=== PATIENT | male | born 1945 | race Caucasian/White ===

== ENCOUNTER → 2019-11-30 10:56 | Outpatient (BNVA) | payer MEDICARE, SELFPAY | PROVIDERS: Family Provider Family Medicine; Visit Provider Family Medicine | DX: I10 Essential (primary) hypertension (principal); E11.9 Type 2 diabetes mellitus without complications; L82.1 Other seborrheic keratosis; I78.1 Nevus, non-neoplastic | CPT/HCPCS: 80048; 83036 ==

== ENCOUNTER → 2020-04-07 09:32 | Outpatient (BNVA) | payer MEDICARE, SELFPAY | PROVIDERS: Family Provider Family Medicine; Visit Provider Family Medicine | DX: I10 Essential (primary) hypertension (principal); K21.9 Gastro-esophageal reflux disease without esophagitis; E11.9 Type 2 diabetes mellitus without complications; N40.0 Benign prostatic hyperplasia without lower urinary tract symptoms; R19.8 Other specified symptoms and signs involving the digestive system and abdomen | CPT/HCPCS: 80053; 80061; 81000; 83036; 83690 ==

== ENCOUNTER 2020-04-15 07:15 | Day surgery (SDC) | payer MEDICARE, SELFPAY ==
[2020-04-14 13:45] VITALS: BMI 26.9
[2020-04-15 07:40] VITALS: BP 147/81; PULSE 66; RESP 18; TEMP 36.2; O2SAT 94
--- NOTE | 2020-04-15 07:55 | ANES.PREANE2 ---
Pre-Anesthetic Assessment Pre-Anesthetic Assessment: Height/Weight: Height 1.77 m Weight 83.915 kg Temp Pulse Resp BP Pulse Ox 97.2 F L 66 18 147/81 94 04/15/20 07:40 04/15/20 07:40 04/15/20 07:40 04/15/20 07:40 04/15/20 07:40 Preop Diagnosis: pain Proposed Procedure: Operation Date: 04/15/20 09:00 Proposed Procedures p EGD 99578 R10.9(Not Applicable) - Fox Alcazar MD Last intake: Intake Last Liquid Date 04/14/20 Last Liquid Time 19:00 Last Solid Date 04/14/20 Last Solid Time 19:00 Social: Social History: No alcohol and No tobacco Exam: Pre-Anes Outpt Exam: alert, oriented x 3, clear to auscultation bilaterally and regular rate & rhythm Airway: Submandibular: WNL Cervical ROM: WNL MP: 1 Dentition: Other (very poor) History/ROS: No significant history except as noted Pulmonary: Pulmonary: Cough and Sleep apnea CV/HEM: CV/HEM: HTN : Comments: h/o kidney CA Hepatic: Comments: fatty liver Metabolic: Metabolic: None reported Musc/skel: Musc/skel: OA/DJD Neuropsych: Neuropsych: None reported Anesthetic Plan: ASA status: 2 Anesthesia: Anesthesia Evaluation and MAC Risk of > 500 ml blood loss (7ml/kg in children): No PFSH Anesthesia PFSH: Medical History BPH (benign prostatic hyperplasia) Diabetes Essential hypertension (Unknown) Fatty liver GERD (gastroesophageal reflux disease) Hepatic cyst Surgical History H/O arthroscopic knee surgery H/O vasectomy History of kidney surgery History of prostate surgery S/P tonsillectomy Social History Smoking and tobacco status: never smoked Alcohol intake: never History of recent travel: No Data Anesthesia Cardiac Studies: No Data to Display
[2020-04-15] MEDS: sodium chloride 0.9% 1,000 ML 30 ML IV (07:57)
--- NOTE | 2020-04-15 09:15 | P.HP_ITS ---
Same Day Surgery H&P Indication for Procedure/HPI DATE OF PROCEDURE: April 15, 2020 CHIEF COMPLAINT/INDICATIONFOR SURGICAL PROCEDURE: Epigastric pain PREOP DIAGNOSIS: pain PLANNED PROCEDRUE: Operation Date: 04/15/20 09:00 Proposed Procedures p EGD 45165 R10.9(Not Applicable) - Fox Alcazar MD Medications/Allergies* Home Medications Medication Instructions Recorded Confirmed Type finasteride 5 mg tablet 5 mg PO QDAY 11/28/19 04/15/20 History Allergies/Adverse Reactions Allergy/AdvReac Type Severity Reaction Status Date / Time No Known Allergies Allergy Verified 04/12/20 13:37 Current Medications: Generic Name Dose Route Start Last Admin Trade Name Freq PRN Reason Stop Dose Admin Sodium Chloride 1,000 mls @ 30 mls/hr 04/15/20 07:30 04/15/20 07:57 Sodium Chloride 0.9% IV 30 mls/hr .Q24H TANNER Administration Pertinent History/Comorbid Conditions* Medical History (Updated 04/12/20 @ 14:10 by Fox Alcazar MD) BPH (benign prostatic hyperplasia) Diabetes Essential hypertension (Unknown) Fatty liver GERD (gastroesophageal reflux disease) Hepatic cyst Surgical History (Updated 11/30/19 @ 11:58 by Vee Rosenberg MD) H/O arthroscopic knee surgery H/O vasectomy History of kidney surgery History of prostate surgery S/P tonsillectomy Social History Smoking and tobacco status: never smoked Alcohol intake: never History of recent travel: No Pertinent Exam Findings alert, oriented x 3, clear to auscultation bilaterally, regular rate & rhythm, operative site marked and procedure specific exam findings Recommendations Surgery/Procedure today Coding Level of Care Code Acute Financial Services Representative for Fercho Guy
--- NOTE | 2020-04-15 09:20 | US_ITS ---
WS: [id number] ABDOMINAL ULTRASOUND LIMITED REASON FOR VISIT: Postprandial epigastric pain and pale-colored stools. TECHNIQUE: Grayscale and Doppler ultrasound examination of the abdomen. FINDINGS: Pancreas: Poorly evaluated due to overriding gas. Abdominal aorta and IVC: Normal Liver: Liver measures 16.4 cm in length echogenic pattern is consistent with fatty infiltration. Hepatopedal portal circulation. A benign appearing cyst is seen in the left lobe of the liver. Gallbladder: Gallbladder wall thickness measures 0.2 mm. No stones identified Right kidney: Right kidney measures 11.7 cm x 5.8 cm x 6.4 cm. No hydronephrosis no stones. US/US gall bladder [id number] IMPRESSION: Fatty infiltration of the liver. Gallbladder was negative. Benign cyst of the left lobe of the liver
[2020-04-15 09:24] VITALS: BP 115/71; PULSE 54; RESP 16; TEMP 36.5; O2SAT 91
[2020-04-15 09:42] VITALS: BP 121/78; PULSE 52; RESP 18; O2SAT 90
[2020-04-18 09:08] LABS: H. Pylori / CLO Test Negative
== END 2020-04-15 10:01 | disposition home or self-care (01) ==
PROVIDERS: Family Provider Family Medicine; Visit Provider Internal Medicine
PROC: 0DJ08ZZ Inspection of Upper Intestinal Tract, Via Natural or Artificial Opening Endoscopic (ICD-10-PCS; CPT 43235; principal; 2020-04-15 09:00)
DX: R10.13 Epigastric pain (principal); K29.70 Gastritis, unspecified, without bleeding; N40.0 Benign prostatic hyperplasia without lower urinary tract symptoms; E11.9 Type 2 diabetes mellitus without complications; I10 Essential (primary) hypertension; K21.9 Gastro-esophageal reflux disease without esophagitis; G47.30 Sleep apnea, unspecified; M19.90 Unspecified osteoarthritis, unspecified site
CPT/HCPCS: 12345; 43239; 76705; 87077; J7030

== ENCOUNTER 2020-05-27 13:53 | Outpatient (CLI) | payer MEDICARE, SELFPAY ==
--- NOTE | 2020-05-27 14:15 | USCV_ITS ---
Bhanu Mcclendon Age: 74 Gender: M : 1945 Exam Date: 05/27/2020 14:20 Ordering Phys: Vee Rosenberg MD Technologist: JENNIFER ROSALES Exam Location: [facility] [place] Indication: SWELLING OF LEFT LOWER EXTREMITY PROCEDURES: Venous duplex imaging was performed in only the left lower extremity. The following venous structures were evaluated: common femoral vein, profunda vein, proximal portion of the greater saphenous vein, superficial femoral vein, and the popliteal vein. In addition, the posterior tibial and peroneal trunk were evaluated. Serial compression, augmentation maneuvers, and spectral Doppler flow evaluation were performed. FINDINGS: Normal 2-D Doppler and augmentation and compressibility throughout the lower extremity venous structures. Additional imaging through the proximal calf veins also reveals no thrombus. Limited evaluation of the greater saphenous vein is patent with no thrombus.. CONCLUSIONS No evidence of left lower extremity DVT. Martell Bryan MD (Electronically Signed) Final Date: 27 May 2020 16:44 S
== END 2020-05-27 13:54 | disposition home or self-care (01) ==
LOC: US 13:55
PROVIDERS: PCP Family Medicine; Visit Provider Family Medicine
DX: M79.89 Other specified soft tissue disorders (principal)
CPT/HCPCS: 93971

== ENCOUNTER 2020-06-07 06:00 | Outpatient (RCR) | payer MEDICARE, SELFPAY | END 2020-06-10 23:59 | disposition home or self-care (01) | LOC: MOT 06:00 | PROVIDERS: PCP Family Medicine; Referring Provider Family Medicine; Visit Provider Family Medicine | DX: M79.89 Other specified soft tissue disorders (principal) | CPT/HCPCS: 97140; 97165 ==

== ENCOUNTER 2020-06-11 06:00 | Outpatient (RCR) | payer MEDICARE, SELFPAY | END 2020-07-11 23:59 | disposition home or self-care (01) | LOC: MOT 06:00 | PROVIDERS: PCP Family Medicine; Referring Provider Family Medicine; Visit Provider Family Medicine | DX: M79.89 Other specified soft tissue disorders (principal) | CPT/HCPCS: 97140 ==

== ENCOUNTER 2020-07-12 06:00 | Outpatient (RCR) | payer MEDICARE, SELFPAY | END 2020-08-10 23:59 | disposition home or self-care (01) | LOC: MOT 06:00 | PROVIDERS: PCP Family Medicine; Referring Provider Family Medicine; Visit Provider Family Medicine | DX: M79.89 Other specified soft tissue disorders (principal) | CPT/HCPCS: 97140; 97535 ==

== ENCOUNTER 2020-09-11 06:00 | Outpatient (RCR) | payer MEDICARE, SELFPAY | END 2020-10-10 23:00 | disposition home or self-care (01) | LOC: MOT 06:00 | PROVIDERS: PCP Family Medicine; Referring Provider Family Medicine; Visit Provider Family Medicine | DX: M79.89 Other specified soft tissue disorders (principal) | CPT/HCPCS: 97140 ==

== ENCOUNTER → 2020-11-08 11:23 | Outpatient (BNVA) | payer MEDICARE, SELFPAY | PROVIDERS: PCP Family Medicine; Visit Provider Family Medicine | DX: I10 Essential (primary) hypertension (principal); E87.6 Hypokalemia; R10.9 Unspecified abdominal pain; M79.89 Other specified soft tissue disorders; E11.42 Type 2 diabetes mellitus with diabetic polyneuropathy | CPT/HCPCS: 80053; 83036; 83690 ==

== ENCOUNTER → 2021-03-24 10:22 | Outpatient (BNVA) | payer MEDICARE, SELFPAY | PROVIDERS: PCP Family Medicine; Visit Provider Family Medicine | DX: Z20.822 Contact with and (suspected) exposure to COVID-19 (principal) | CPT/HCPCS: 87635 ==

== ENCOUNTER 2021-03-30 12:53 | Outpatient (CLI) | payer MEDICARE, SELFPAY ==
--- NOTE | 2021-03-30 13:23 | PFTS_ITS ---
Date of Study:03/30/21 Date of Dictation: MECHANICS: Forced vital capacity (FVC) is normal. Forced expiratory volume in one second (FEV1) is normal. FEV1/FVC is normal. FLOW VOLUME LOOP: The inspiratory limb of flow volume loop is consistent with variable extrathoracic obstruction. LUNG VOLUMES: Not measured DIFFUSING CAPACITY FOR CARBON MONOXIDE: Mildly reduced. INTERPRETATION: The prebronchodilator spirometry is normal. Flow volume loop could be suggestive of variable extrathoracic obstruction. Gas exchange (DLCO) is mildly reduced. MTDD
== END 2021-03-30 12:54 | disposition home or self-care (01) ==
LOC: RT 12:53
PROVIDERS: PCP Family Medicine; Visit Provider Family Medicine
DX: R06.02 Shortness of breath (principal)
CPT/HCPCS: 94010; 94729

== ENCOUNTER → 2021-05-08 14:11 | Outpatient (BNVA) | payer MEDICARE, SELFPAY | PROVIDERS: PCP Family Medicine; Visit Provider Family Medicine | DX: E11.9 Type 2 diabetes mellitus without complications (principal); R06.02 Shortness of breath; R05 Cough; I10 Essential (primary) hypertension; J18.9 Pneumonia, unspecified organism; J30.9 Allergic rhinitis, unspecified | CPT/HCPCS: 71046; 80053; 83036; 85025 ==

== ENCOUNTER 2021-07-03 14:07 | Outpatient (CLI) | payer MEDICARE, SELFPAY ==
--- NOTE | 2021-07-03 14:17 | USCV_ITS ---
Bhanu Mcclendon Age: 76 Gender: M : 1945 Exam Date: 07/03/2021 14:36 Ordering Phys: Rosamaria Sinclair MD Technologist: Lulu Ren Exam Location: [facility] [place] Indication: SHORTNESS OF BREATH BP: 111 / 80 HR: 59 Rhythm: Sinus Technical Quality: Adequate MEASUREMENTS (Male / Female) Normal Values 2D ECHO LV Diastolic Diameter PLAX 4.6 cm 4.2 - 5.9 / 3.9 - 5.3 cm LV Systolic Diameter PLAX 2.9 cm IVS Diastolic Thickness 1.2 cm 0.6 - 1.0 / 0.6 - 0.9 cm IVS Systolic Thickness 1.6 cm LVPW Diastolic Thickness 1.3 cm 0.6 - 1.0 / 0.6 - 0.9 cm LVPW Systolic Thickness 1.6 cm RV Chamber Size 3.4 cm LVOT Diameter 2.0 cm LV Ejection Fraction 2D Teich 65.1 % LV Ejection Fraction MOD 2C 65.0 % LV Ejection Fraction 2C AL 67.3 % LA Diameter 2.8 cm LA Width 2.9 cm LA Height 4.1 cm RA Width 3.1 cm RA Height 3.9 cm Aorta at Sinotubular Diameter 2.5 cm M-MODE Aortic Annulus Diameter 3.3 cm LA Ao Ratio MM 0.9 MV E Point Septal Separation 0.4 cm DOPPLER AV Peak Velocity 131.0 cm/s LVOT Peak Velocity 92.0 cm/s AV Area Cont Eq vti 2.3 cm squared AV Area Cont Eq pk 2.2 cm squared MV Area PHT 5.1 cm squared Mitral E to A Ratio 1.6 MV E' Velocity 37.5 cm/s Mitral E to MV E' Ratio 7.6 Mitral E to LV E' Lateral Ratio 7.2 Mitral E to LV E' Septal Ratio 8.0 TR Peak Velocity 206.0 cm/s TR Peak Gradient 17.0 mmHg TV Peak E Velocity 50.3 cm/s Right Atrial Pressure 3.0 mmHg Pulmonary Artery Systolic Pressu 20.0 mmHg PV Peak Velocity 81.0 cm/s RV Acceleration Time 0.1 s RV Ejection Time 0.3 s RV AcT/ET 0.4 FINDINGS Left Ventricle Normal left ventricular size. LV systolic function is normal with EF of 55-60%. No regional wall motion abnormalities. Grade 1 diastolic dysfunction Right Ventricle The right ventricle is normal in size and function. Right Atrium The right atrium is normal in size. Left Atrium The left atrium is normal in size. Mitral Valve Structurally normal mitral valve without significant stenosis or prolapse. There is no mitral regurgitation. Aortic Valve Structurally normal aortic valve without significant sclerosis or stenosis. There is no aortic regurgitation. Tricuspid Valve Structurally normal tricuspid valve without significant stenosis or regurgitation. Insufficient TR jet to calculate RVSP Pulmonic Valve Structurally normal pulmonic valve without significant stenosis. There is no pulmonic regurgitation. Pericardium Normal pericardium without effusion. Aorta Normal ascending aorta dimension. CONCLUSIONS LV systolic function is normal with EF of 55-60% Grade 1 diastolic dysfunction No significant valvular heart disease No comparison studies are available Anibal Johnson MD (Electronically Signed) Final Date: 13 July 2021 13:23 S
== END 2021-07-03 14:08 | disposition home or self-care (01) ==
PROVIDERS: PCP Family Medicine; Visit Provider Internal Medicine Critical Care Medicine
DX: R06.02 Shortness of breath (principal); I51.81 Takotsubo syndrome
CPT/HCPCS: 93306

== ENCOUNTER → 2022-02-06 14:28 | Outpatient (BNVA) | payer MEDICARE, SELFPAY | PROVIDERS: PCP Family Medicine; Visit Provider Family Medicine | DX: I10 Essential (primary) hypertension (principal); N40.1 Benign prostatic hyperplasia with lower urinary tract symptoms; R39.11 Hesitancy of micturition; J30.9 Allergic rhinitis, unspecified; E87.6 Hypokalemia; E11.9 Type 2 diabetes mellitus without complications | CPT/HCPCS: 80048; 81000; 83036; 83735 ==

== ENCOUNTER → 2022-05-16 11:02 | Outpatient (BNVA) | payer MEDICARE, SELFPAY | PROVIDERS: PCP Family Medicine; Visit Provider Emergency Medicine | DX: N30.01 Acute cystitis with hematuria (principal); Z87.442 Personal history of urinary calculi | CPT/HCPCS: 81000 ==

== ENCOUNTER → 2022-05-24 10:22 | Outpatient (BNVA) | payer MEDICARE, SELFPAY | PROVIDERS: PCP Family Medicine; Visit Provider Family Medicine | DX: Z87.442 Personal history of urinary calculi (principal); K76.0 Fatty (change of) liver, not elsewhere classified; R31.9 Hematuria, unspecified; N40.1 Benign prostatic hyperplasia with lower urinary tract symptoms; R39.11 Hesitancy of micturition | CPT/HCPCS: 81000; 87086 ==

== ENCOUNTER → 2022-06-05 15:41 | Outpatient (BNVA) | payer MEDICARE, SELFPAY | PROVIDERS: PCP Family Medicine; Visit Provider Family Medicine | DX: R31.9 Hematuria, unspecified (principal) | CPT/HCPCS: 81000; 87086 ==

== ENCOUNTER 2022-06-27 10:25 | Outpatient (CLI) | payer MEDICARE, SELFPAY ==
--- NOTE | 2022-06-27 11:00 | US_ITS ---
WS: [id number] Abdomen ultrasound, 06/27/2022 Clinical Data: K76.0 - Fatty (change of) liver, not elsewhere classified Comparison: CT abdomen, 10/09/2019. Findings: The pancreas shows no cyst, pseudocyst or evidence of pancreatitis. The liver shows no cysts, masses or dilated intrahepatic ducts. The liver is dense. The gallbladder has no stones or sludge. The wall measures 0.2 cm with no pericholecystic fluid. The common bile duct is 0.5 cm and no intraductal abnormalities are noted. The right kidney is 12.1 cm. There is mild right hydronephrosis. The left kidney is 9.7 cm. The left kidney shows a mild dilated renal pelvis with possible cyst. The abdominal aorta is not dilated and t he inferior vena cava has normal flow. No vascular abnormalities are seen. The spleen measures 10.5 cm and there are no intrasplenic masses or capsular abnormalities. US/US abdomen complete* [id number] Impression: 1. Dense echogenic liver. 2. Mild right hydronephrosis. 3. Minimal dilated left renal pelvis with possible cyst
== END 2022-06-27 10:26 | disposition home or self-care (01) ==
LOC: RAD 10:27
PROVIDERS: PCP Family Medicine; Visit Provider Family Medicine
DX: K76.0 Fatty (change of) liver, not elsewhere classified (principal); N13.30 Unspecified hydronephrosis
CPT/HCPCS: 76700

== ENCOUNTER → 2022-10-16 13:46 | Outpatient (BNVA) | payer MEDICARE, SELFPAY | PROVIDERS: PCP Family Medicine; Visit Provider Family Medicine | DX: Z13.220 Encounter for screening for lipoid disorders (principal); E11.9 Type 2 diabetes mellitus without complications; Z13.6 Encounter for screening for cardiovascular disorders; K76.0 Fatty (change of) liver, not elsewhere classified | CPT/HCPCS: 80061; 83036; 86803 ==

== ENCOUNTER → 2023-01-14 11:34 | Outpatient (BNVA) | payer MEDICARE, SELFPAY | PROVIDERS: PCP Family Medicine; Visit Provider Family Medicine | DX: R30.0 Dysuria (principal) | CPT/HCPCS: 81000 ==

== ENCOUNTER → 2023-02-05 13:18 | Outpatient (BNVA) | payer MEDICARE, SELFPAY | PROVIDERS: PCP Family Medicine; Visit Provider Family Medicine | DX: R30.9 Painful micturition, unspecified (principal); R31.9 Hematuria, unspecified | CPT/HCPCS: 81000; 87086 ==

== ENCOUNTER → 2023-06-11 14:55 | Outpatient (BNVA) | payer MEDICARE, SELFPAY | PROVIDERS: PCP Family Medicine; Visit Provider Family Medicine | DX: I10 Essential (primary) hypertension (principal); E11.9 Type 2 diabetes mellitus without complications | CPT/HCPCS: 80053; 83036; 83735 ==

== ENCOUNTER → 2023-09-10 13:33 | Outpatient (BNVA) | payer MEDICARE, SELFPAY | PROVIDERS: PCP Family Medicine; Visit Provider Family Medicine | DX: M17.12 Unilateral primary osteoarthritis, left knee (principal) | CPT/HCPCS: 73562 ==

== ENCOUNTER → 2023-09-18 13:15 | Outpatient (BNVA) | payer MEDICARE, SELFPAY | PROVIDERS: PCP Family Medicine; Referring Provider Family Medicine; Visit Provider Nurse Practitioner | DX: M17.12 Unilateral primary osteoarthritis, left knee | CPT/HCPCS: 20610; 73560; 73565; 99204; J1100; J2795; J3301 ==

== ENCOUNTER → 2023-12-25 12:08 | Outpatient (BNVA) | payer MEDICARE, SELFPAY | PROVIDERS: PCP Family Medicine; Visit Provider Nurse Practitioner | DX: M17.12 Unilateral primary osteoarthritis, left knee (principal) | CPT/HCPCS: 99214 ==

== ENCOUNTER → 2023-12-30 08:45 | Outpatient (BNVA) | payer MEDICARE, SELFPAY | PROVIDERS: PCP Family Medicine; Referring Provider Nurse Practitioner; Visit Provider Nurse Practitioner | DX: E11.9 Type 2 diabetes mellitus without complications (principal); M17.12 Unilateral primary osteoarthritis, left knee | CPT/HCPCS: 80053; 83036; 85025 ==

== ENCOUNTER 2024-01-20 09:41 | Outpatient (CLI) | payer MEDICARE, SELFPAY ==
--- NOTE | 2024-01-20 10:30 | CT_ITS ---
WS: [id number] CT LEFT KNEE, NONCONTRAST TECHNIQUE: Noncontrast CT of the LEFT knee to include the LEFT hip and ankle. [facility] CLINICAL INFORMATION: surgery COMPARISON: None. DLP: [id number] scans at [facility] use at least one of these dose optimization techniques: automated e xposure control; mA and/or kV adjustment per patient size (includes targeted exams where dose is matc hed to clinical indication); or iterative reconstruction. FINDINGS: Advanced tricompartmental arthritis LEFT knee. Hypertrophic changes along the joint line. Hypertrophi c patella. Small joint effusion. Normal popliteal fossa. Degenerative arthritis sacroiliac joints. Mo derate degenerative arthritis both hips. IMPRESSION: Images obtained for preoperative purposes.
== END 2024-01-20 09:42 | disposition home or self-care (01) ==
LOC: RAD 09:41
PROVIDERS: PCP Family Medicine; Visit Provider Nurse Practitioner
DX: M17.12 Unilateral primary osteoarthritis, left knee (principal)
CPT/HCPCS: 73700

== ENCOUNTER → 2024-01-21 13:46 | Outpatient (BNVA) | payer MEDICARE, SELFPAY | PROVIDERS: PCP Family Medicine; Visit Provider Family Medicine | DX: Z01.818 Encounter for other preprocedural examination (principal) | CPT/HCPCS: 81003 ==

== ENCOUNTER → 2024-01-22 12:07 | Outpatient (BNVA) | payer MEDICARE, SELFPAY | PROVIDERS: PCP Family Medicine; Visit Provider Family Medicine | DX: Z01.818 Encounter for other preprocedural examination (principal); R82.71 Bacteriuria | CPT/HCPCS: 87086 ==

== ENCOUNTER 2024-01-30 11:57 | Observation (INO) | payer MEDICARE, SELFPAY ==
[2024-01-30] VITALS (17 sets, daily range): BP systolic 117–146; BP diastolic 64–86; PULSE 49–78; RESP 12–18; TEMP 36.2–37.5; O2SAT 93–97; BMI 29.3
--- NOTE | 2024-01-30 06:57 | P.ANESASSM_ITS ---
Pre-Anesthetic Assessment Height/Weight: Height 1.75 m Temp Pulse Resp BP Pulse Ox O2 Del Method 97.7 F 50 L 16 145/86 95 Room Air 01/30/24 06:13 01/30/24 06:13 01/30/24 06:13 01/30/24 06:13 01/30/24 06:13 01/30/24 06:13 Operation Date: 01/30/24 07:55 Proposed Procedures p Jake Robot Total Knee Arthroplasty(Left) - Mirella Alex MD Familial anesthetic complications: None Was Beta Chio taken within 24 hours: N/A Was Clonidine taken within 24 hours: N/A Last intake: Intake Last Liquid Date 01/29/24 Last Liquid Time 19:00 Last Solid Date 01/29/24 Last Solid Time 19:00 Social No alcohol and No tobacco Exam alert, oriented x 3, clear to auscultation bilaterally and regular rate & rhythm Airway Mallampati: Class II CV/HEM Hypertension Hepatic fatty liver Anesthetic Plan ASA status: 2 Anesthesia: Regional (specify below) Risk of > 500 ml blood loss (7ml/kg in children): No Medications/Allergies Home Medications Medication Instructions Recorded Confirmed Last Taken Type docusate sodium 100 mg capsule 100 mg PO BID 30 days #60 caps 07/16/23 01/30/24 01/28/24 Rx finasteride 5 mg tablet 5 mg PO DAILY 90 days #90 tabs 12/11/23 01/30/24 01/28/24 Rx losartan 50 mg-hydrochlorothiazide 1 tab PO DAILY 90 days #90 tabs 12/11/23 01/30/24 01/28/24 Rx 12.5 mg tablet Allergies Allergy/AdvReac Type Severity Reaction Status Date / Time lisinopril AdvReac Mild diarrhea, Verified 01/29/24 10:48 abdominal pain [facility] Anesthesia Medical History Osteoarthritis of left knee History of kidney stones SOB (shortness of breath) Allergic rhinitis GERD (gastroesophageal reflux disease) Resolved, off PPI, we will restart if needed. Essential hypertension (Unknown) Fatty liver Hepatic cyst BPH (benign prostatic hyperplasia) No longer following with retired urologist. We can refer back in the future if needed Diabetes Surgical History H/O laminectomy H/O circumcision H/O vasectomy H/O arthroscopic knee surgery History of kidney surgery History of prostate surgery S/P tonsillectomy Family History Mother Cancer Denies family history of Diabetes CAD (coronary artery disease) Anesthesia complication Bleeding disorder Social History Smoking and tobacco/nicotine status: former use of tobacco/nicotine Second hand smoke exposure: No Alcohol intake: never Substance/Drug Use: never Lives independently: Yes Household members: spouse Marital status: Current occupational status: retired Do you think of yourself as: Straight/Heterosexual Current gender identity: Male Data Anesthesia Cardiac Studies: Echocardiogram 07/03/21
[2024-01-30] MEDS: sodium chloride 0.9% 1,000 ML 30 ML IV (06:59)
[2024-01-30] MEDS: gabapentin 300 mg Capsule PO (07:02)
[2024-01-30] MEDS: acetaminophen 1,000 MG/100 ML PIGGYBACK 400 MG IV ×3 (07:02→19:47)
[2024-01-30] MEDS: CELEcoxib 200 mg Capsule 400 MG PO (07:03)
--- NOTE | 2024-01-30 07:52 | ANES.PROC ---
Anesthesia Procedures Procedure/Date: 01/30/24 Nerve Block ^: Nerve Block 1: Main Anesthesia: spinal anesthesia block Time Out Performed: Yes Consent: requested by attending/covering physician, from patient, from other, risks and benefits reviewed and patient agrees to proceed Nerve block location: adductor canal (L) Anesthesia monitors applied: pulse oximetry, EKG and BP cuff Nerve block position: supine Anesthetic Used: ropivicaine 0.5% (30 ml) and with decadron (4 mg) Ultrasound used to: recognize landmarks and visualize and ID femerol nerve Nerve Stimulator Used?: No Interscalene/Femoral BLK: 4 stimuplex 21 g needle used for position and inplane approach, visualize local anesthetic spread and no vascular puncture identified Injection: neg aspiration of heme Patient Tolerated Procedure: well Complications: none
--- NOTE | 2024-01-30 07:59 | P.HPUD_ITS ---
Surgery/Procedure H&P Update DATE OF PROCEDURE: January 30, 2024 DATE H&P PERFORMED: 01/21/24 H&P UPDATE INFORMATION: I have reviewed H&P completed within last 30 days, I have examined patient prior to procedure, No changes to prior documentation and H&P is in [facility] EMR on date indicated PLANNED PROCEDURE: Operation Date: 01/30/24 07:55 Proposed Procedures p Jake Robot Total Knee Arthroplasty(Left) - Mirella Alex MD Related Problem List Diagnoses (1) Osteoarthritis of left knee: Qualifiers: Osteoarthritis type: primary Qualified Code(s): M17.12 - Unilateral primary osteoarthritis, left knee
[2024-01-30] MEDS: ceFAZolin 2,000 MG in sodium chloride 0.9% (plus) 50 ML 100 MG IV ×3 (08:10→23:51)
[2024-01-30] MEDS: tranexamic acid 1,000 mg/10mL SDV 1000 MG XX (08:32)
[2024-01-30] MEDS: ceFAZolin 1,000 mg SDV 2000 MG IRRIGATION (09:05)
[2024-01-30] MEDS: vancomycin 1,000 MG SDV 1000 MG XX (09:06)
[2024-01-30] MEDS: BUPivacaine 0.5% INJ 30 mL 20 ML INJECTION (09:07)
[2024-01-30] MEDS: BUPivacaine liposome 13.3 mg/mL SDV 10 mL 266 MG INFILTRATI (09:07)
--- NOTE | 2024-01-30 11:34 | XR_ITS ---
WS: [id number] Left knee, AP and lateral views, 01/30/2024 Clinical Data: Status post left total knee arthroplasty Comparison: Left knee, bilateral knees, 09/18/2023 Findings: The left knee arthroplasty shows the components in good position. There is postoperative air in the j oint space. Impression: Negative left knee. Left knee arthroplasty
--- NOTE | 2024-01-30 11:35 | P.OP_ITS ---
Operative Report Date of procedure: January 30, 2024 Pre-op diagnosis: Significant degenerative osteoarthritis of the left knee with flexion contracture and varus deformity Post-op diagnosis: Significant degenerative osteoarthritis of the left knee with flexion contracture and varus deformity Post-op findings: Significant degenerative osteoarthritis of the left knee with flexion contr acture and varus deformity as noted Procedure done: Left total knee arthroplasty with Jake guidance Implants: The Shaggy total knee system with a size 5 triathlon beaded cruciate retaining femur left, a triathlon titanium tibial component size 6 beaded, a triathlon X3 tibial bearing CS insert size 6 X 9 mm and a beaded triathlon titanium asymmetric patella size 35 x 10 mm Specimens removed/disposition: Bone, disposed of Pathology: None Surgeon: Mirella Alex MD Recruiting Consultant: Steff Fuentes, nurse practitioner, who services were essential for positioning, retraction, closure, and completion of the surgical procedure Anesthesia: Spinal (With MAC, ASA 2) Estimated blood loss (mL): 600 Tourniquet time (min): 0 (Not utilized) IV fluids (mL): 200 Urine output (mL): 200 Complications: None Findings: Severe degenerative osteoarthritis Condition: stable Disposition: PACU Brief History: This 78-year-old gentleman presented today for left total knee arthroplasty. He had had ongoing pain for several years and had significant limitations in his activities of daily living. He failed conservative nonoperative management. The patient wished to proceed with total knee arthroplasty. Risks and complications were discussed with him in the clinic. He elected to proceed and family was in agreement. At that time, consents were signed and questions were answered. Procedure: The patient was brought to the operating theater, and after undergoing spinal anesthetic, with supplemental adductor canal block, ASA 2, the left lower extre mity was prepped with Dura-Prep and draped in usual fashion following placement of a tourniquet high on the leg. The leg was then draped free.? Tourniquet was not elevated during the case.? A surgical pause was performed, and at the time of the surgical pause, we confirmed the site and side of surgery. Additionally, we confirmed the appropriate and timely administration of preoperative antibiotics, Ancef 2 g.? The availability of equipment was confirmed, and the patient's identity was verbalized as well. Following the surgical pause, an incision was made centering over the patella continuing proximally and distally as necessary to allow access to the knee joint. Dissection continued through skin and soft tissues using a scalpel. Hemostasis was obtained using electrocautery. The skin incision was followed by a median parapatellar arthrotomy. The leg was extended and the patella was able to be displaced laterally.? Appropriate arrays and markers were placed in appropriate position for use of the Jake.? Preoperative planning had been accomplished and was discussed in detail with the [facility] membership sales representative.? Intraoperative mapping of the femur and tibia was accomplished after the arrays were placed.? Internal markers were also placed.? Once we had accomplished the Jake mapping, we began the appropriate resections for placement of the prosthesis.? The plan was for a cruciate retaining right total knee arthroplasty. Once appropriate mapping had been accomplished retraction was established using manual retraction by surgical technicians and also the [facility] leg positioner and retractors.? The knee was evaluated.? There was significant osteoarthritic change as well as very minimal flexion contracture as well as slight varus deformity.? Appropriate bone resection was accomplished using the Jake.? The femur was sized to a size 5.? Following femoral cuts, attention was directed to the tibia.? Osteophytes were removed prior to this portion of the procedure.? We had performed a minimal medial release at the beginning of the procedure to allow for placement of the array.? Proximal tibia was evaluated, and it was felt that appropriate size for the tibia was a size 6.? Tray was noted to fit nicely with good coverage.? Rim fit was accomplished with the size 6. A trial reduction was accomplished after osteophytes have been removed as well as the medial and lateral menisci.? We had removed the anterior cruciate ligament at the beginning of the case and preserved the posterior cruciate ligament.? Trial reduction was accomplished with a size 5 femoral cruciate retaining component, a size 6 tibial tray and a size 6 CS tibial bearing insert which was 9 mm.? Secondary to the balancing of the knee, we elected to place a 9 mm insert for the actual component. Alignment was felt to be appropriate as well.? Trial components were removed after the femur had been drilled.? Prior to removal of the tibial tray which had been pinned in position with appropriate rotation as determined by the [facility] plan, we broached the tibia.? Subsequently, the 4 drill holes were made for the prosthetic component.? All trial components were removed, and the wound was irrigated.? Plans were made for insertion of the prosthetic components.? Prior to this, the patella was manually prepared.? After resection of the articular surface with the jigging system, it was measured and measured a 35 mm patella.? We resected approximately 11 mm of patella.? Patellar height was restored with the patellar component. Once again, the wound was irrigated.? The Tritanium tibia was impacted into position.? The beaded femur was then impacted into position in a cementless fashion. The CS tibial insert was placed prior to placement of the femoral component. The patella was pressed into position with a patellar clamp.? Exparel was injected about the components deep and superficially.? The knee was then copiously irrigated with betadine and saline and suctioned dry. Attention was then directed to closure. Closure was accomplished with 0 Vicryl in the fascial tissues.? The suture line of 0 Vicryl was supplemented with strata fix, #1, with a running stitch from proximal to distal and a second running stitch from distal to proximal.? This was followed by Surgiflo and vancomycin powder.? Following this, a 2-0 Monocryl was used in the subcutaneous tissues, and the skin was closed with 3-0 Strata fix.? Care was taken to assure an excellent subcutaneous as well as skin closure.? A sterile dressing was then placed consisting of Dermabond Prineo, OpSite, ABD, sterile soft roll, and an Ned wrap including over the foot. The patient was returned the Recovery Room in a satisfactory condition. X-rays were obtained and reviewed there.? The patient will be discharged to the floor for postoperative rehabilitation and pain management. Related Problem List Diagnoses (1) Osteoarthritis of left knee: (2) Varus deformity, not elsewhere classified, left knee:
[2024-01-30] MEDS: fentaNYL 50 mcg/mL INJ 2mL IVP (11:46)
--- NOTE | 2024-01-30 12:05 | ANE.PACU2 ---
Inpatient post-anesthesia follow up: Airway intact: Yes Vital signs: Temperature 97.4 F Pulse Rate 49 Respiratory Rate 16 Blood Pressure 130/72 Pulse Oximetry 97 Oxygen Delivery Me thod Room Air Oxygen Flow Rate 6 Fraction of Inspir ed Oxygen Hydration adequate: Yes Nausea and vomiting: No Pain level: 1 Mental status: Baseline
[2024-01-30] MEDS: CELEcoxib 200 mg Capsule PO (12:57)
[2024-01-30] MEDS: chlorhexidine gluconate 0.12% Btl 473 mL 30 ML MUCOUS MEM ×2 (13:17→16:06)
[2024-01-30] MEDS: tranexamic acid 1,000 MG/100 ML PREMIX 600 MG IV (15:37)
[2024-01-30] MEDS: oxyCODONE 5 mg IR Tab/Cap PO ×3 (15:40→23:51)
[2024-01-30] MEDS: iron polysaccharide complex 150 mg Capsule PO (17:15)
[2024-01-30] MEDS: docusate sodium 100 mg Capsule PO (17:15)
[2024-01-30] MEDS: mupirocin oint 22 gm 1 APPLIC NASAL (17:15)
[2024-01-31] VITALS (10 sets, daily range): BP systolic 108–150; BP diastolic 63–76; PULSE 64–75; RESP 15–18; TEMP 36.3–36.9; O2SAT 92–95
[2024-01-31] MEDS: cetylpyridinium Lozenge 1 EACH MUCOUS MEM (03:44)
[2024-01-31] MEDS: acetaminophen 1,000 MG/100 ML PIGGYBACK 400 MG IV (03:51)
[2024-01-31 05:17] LABS: Basophils % 0.2 %; Eosinophils % 0.1 %; Hematocrit 34.3 % (37-53); Lymphocytes % 19.7 %; Mean Corpuscular HGB Conc 32.9 g/dL (30-55); Mean Corpuscular Hemoglobin 29.7 pg (27-33); Mean Platelet Volume 11.7 fL (7.4-10.4); Monocytes # 1.3 10^3/uL (0.2-0.9); Monocytes % 13.5 %; Neutrophils # 6.48 10^3/uL (1.8-7.7); Neutrophils % 65.3 %; Nucleated Red Blood Cells % 0 %; Platelet Count 145 10^3/cmm (157-399); Red Blood Count 3.81 10^6/uL (3.85-5.65); Red Cell Distribution Width 13.9 % (12.1-15.1); White Blood Count 9.93 10^3/uL (3.29-11.43)
[2024-01-31 05:30] LABS: Anion Gap 10.6 (5-19); Blood Urea Nitrogen 11 mg/dL (8-23); Calcium 7.7 mg/dL (8.5-10.5); Carbon Dioxide 23 mmol/L (22-29); Chloride 108 mmol/L (98-107); Creatinine Clr Calc Pharmacy 87.1382; Glucose 118 mg/dL (65-115); Osmolality Calculated 286 mOsm/kg (285-295); Potassium 3.6 mmol/L (3.5-5.1); Sodium 138 mmol/L (136-145)
[2024-01-31] MEDS: oxyCODONE 5 mg IR Tab/Cap PO ×3 (05:33→17:35)
[2024-01-31] MEDS: ceFAZolin 2,000 MG in sodium chloride 0.9% (plus) 50 ML 100 MG IV (08:38)
[2024-01-31] MEDS: aspirin 325 mg EC Tablet PO (08:38)
[2024-01-31] MEDS: losartan 50 mg Tablet PO (08:38)
[2024-01-31] MEDS: hydroCHLOROthiazide 25 mg Tablet 12.5 MG PO (08:39)
[2024-01-31] MEDS: iron polysaccharide complex 150 mg Capsule PO (08:39)
[2024-01-31] MEDS: finasteride 5 mg Tablet PO (08:39)
[2024-01-31] MEDS: docusate sodium 100 mg Capsule PO (08:39)
--- NOTE | 2024-01-31 09:15 | PC.CHAP ---
Pastoral Care Encounter/Spiritual Assessment Type of Contact [] Declined cylindrical mixer visit [] Patient/Family/Request visit [] Outpatient visit [] Follow-up visit [] Physician referral [] Code/Alert [] Routine visit [] Staff referral [] Actively dying [] Patient sleeping [] Family support [] [] Out of room [] Palliative care [] [x] Receiving care in room [] Pre-surgical visit [] Trauma [] Long length of stay [] ICU visit [] Other: Relational/Emotional Strength [] Patient feels connected with others/family/visitors/staff [] Distress [] Loneliness/isolation [] Abandonment Spirituality of Patient [] Person of Maureen [] Attends Anabaptist of their Maureen [] Believes in Prayer [] Reads Bible or Temple materials [] There are Spiritual issues to be addressed Retail Selling Specialist Interventions [] Prayer [] Active listening [] Non-anxious presence [] Spiritual/emotional support [] Crisis/trauma care [] Spiritual counseling [] Bereavement support [] Provided bereavement packet [] Provided Bible/devotional materials [] Provided toy/stuffed animal, coloring book to patient or family member [] Provided Communion [] Anointing/[place] [] Salvation [] Completed spiritual assessment [] Other: Impact on Illness or Injury [] Angry [] Fearful [] Anxious [] Often cries [] Exhaustion [] Unable to work [] Unable to attend evangelical [] Unable to walk/stand [] Unable to read [] Unable to drive [] Unable to eat/drink [] Unable to sleep [] Unable to be with family [] Patient intubated [] Other: Summary Time spent with patient
[2024-01-31] MEDS: CELEcoxib 200 mg Capsule PO (09:50)
--- NOTE | 2024-01-31 14:21 | P.DS_ITS ---
Discharge Providers Date of Admission: 01/30/24 11:57 Date of Discharge: January 31, 2024 Attending Provider at Admission: Mirella Alex MD Attending Provider at Discharge: Mirella Alex MD Primary Care Provider: Vee Rosenberg MD Diagnoses at Discharge Discharge Diagnosis (1) Status post total left knee replacement not using cement: Status: Acute (2) Osteoarthritis of left knee: Status: Acute Qualifiers: Osteoarthritis type: primary Qualified Code(s): M17.12 - Unilateral primary osteoarthritis, left knee (3) Varus deformity, not elsewhere classified, left knee: Status: Acute Permanent problem details: Date of procedure: January 30, 2024 Diagnosis: Significant degenerative osteoarthritis of the left knee with flexion contracture and varus deformity Procedure done: Left total knee arthroplasty with Jake guidance Implants: [employer] total knee system with a size 5 triathlon beaded cruciate retaining femur left, a triathlon titanium tibial component size 6 beaded, a triathlon X3 tibial bearing CS insert size 6 X 9 mm and a beaded triathlon titanium asymmetric patella size 35 x 10 mm Reason for Visit Reason for Visit: M17.12 Brief History: This 78-year-old gentleman presented today for left total knee arthroplasty. He had had ongoing pain for several years and had significant limitations in his activities of daily living. He failed conservative nonoperative management. The patient wished to proceed with total knee arthroplasty. Risks and complications were discussed with him in the clinic. He elected to proceed and family was in agreement. At that time, consents were signed and questions were answered. Hospital Course Hospital Course This 78-year-old gentleman underwent left total knee arthroplasty uneventfully. He was admitted overnight under observation status following the surgical procedure. On the day following the procedure, he worked with physical therapy for gait training, ambulation, and strengthening. The patient was able to ambulate independently, and he was felt safe for discharge to home. This was discussed with the patient, and he was comfortable being discharged. Dressings were removed there was no evidence of complication. There is no evidence of DVT. Physical Exam Const: COMMON NORMALS: no acute distress, average body habitus, patient oriented x3 and alert GENERAL APPEARANCE: cooperative and comfortable ORIENTATION/CONSCIOUSNESS: Yes awake HENMT: COMMON NORMALS: normocephalic and atraumatic HEAD & SCALP: normocephalic and atraumatic Eye: GENERAL EYE: appearance normal, both eyes and all related structures Chest: COMMONS NORMALS: normal inspection of the chest Resp: COMMON NORMALS: normal respiratory effort EFFORT & INSPECTION: Yes able to speak in complete sentences and Yes symmetric chest movement Extremity: LEFT LOWER EXTREMITY: Yes knee joint (Dressing dry and intact) Left knee: Yes inspection (No significant bruising or swelling), Yes ROM (Able to straight leg raise) and Yes neurovascular exam (No evidence of DVT) Neuro: COMMON NORMALS: patient oriented x3 SENSORIUM/ORIENTATION: Yes alert Psych: COMMON NORMALS: mental status grossly normal APPEARANCE: Yes grossly normal ATTITUDE: Yes calm and Yes engaged ATTENTION/CONCENTRATION: Yes attention grossly intact Skin: COMMON NORMALS: no rashes or lesions noted GENERAL SKIN EXAM: no rashes or lesions noted Urinary Catheter Management: Colon: Cath Placed During This Visit: yes, but has since been removed by the nurse Reason for Continuing Indwelling Catheter: Decision to DC Catheter Urinary Catheter Date of Insertion: 01/30/24 Urinary Catheter Time of Insertion: 08:30 Date Urinary Catheter Removed: 01/31/24 Time Urinary Catheter Discontinued: 05:29 Discharge Data Studies Completed and Pending Completed Studies During Hospitalization Category Date Time Status XR knee LT 1-2V [id number] Routine Exams 01/30/24 11:34 Completed Pending at discharge Category Date Time Status Complete Blood Count w/Auto AM LABS Lab 02/01/24 04:00 Ordered Complete Blood Count w/Auto AM LABS Lab 02/02/24 04:00 Ordered Laboratory Results WBC 9.93 10^3/uL (3.29-11.43) 01/31/24 04:38 RBC 3.81 10^6/uL (3.85-5.65) L 01/31/24 04:38 Hgb 11.30 g/dL (11.27-16.99) 01/31/24 04:38 Hct 34.3 % (37-53) L 01/31/24 04:38 MCV 90.0 fl (82-101) 01/31/24 04:38 MCH 29.7 pg (27-33) 01/31/24 04:38 MCHC 32.9 g/dL (30-55) 01/31/24 04:38 RDW 13.9 % (12.1-15.1) 01/31/24 04:38 Plt Count 145 10^3/cmm (157-399) L 01/31/24 04:38 MPV 11.7 fL (7.4-10.4) H 01/31/24 04:38 Neut % (Auto) 65.3 % 01/31/24 04:38 Lymph % (Auto) 19.7 % 01/31/24 04:38 [place] % (Auto) 13.5 % 01/31/24 04:38 Eos % (Auto) 0.1 % 01/31/24 04:38 Baso % (Auto) 0.2 % 01/31/24 04:38 Neut # (Auto) 6.48 10^3/uL (1.8-7.7) 01/31/24 04:38 Lymph # (Auto) 2.0 10^3/uL (0.8-4.8) 01/31/24 04:38 [place] # (Auto) 1.3 10^3/uL (0.2-0.9) H 01/31/24 04:38 Eos # (Auto) 0.0 10^3/uL (0.0-0.8) 01/31/24 04:38 Baso # (Auto) 0.0 10^3/uL (0.0-0.1) 01/31/24 04:38 Nucleated RBC % (auto) 0 % 01/31/24 04:38 Nucleated RBCs # 0.0 /100WBC 01/31/24 04:38 Sodium 138 mmol/L (136-145) 01/31/24 04:38 Potassium 3.6 mmol/L (3.5-5.1) 01/31/24 04:38 Chloride 108 mmol/L (98-107) H 01/31/24 04:38 Carbon Dioxide 23 mmol/L (22-29) 01/31/24 04:38 Anion Gap 10.6 (5-19) 01/31/24 04:38 BUN 11 mg/dL (8-23) 01/31/24 04:38 Creatinine 0.6 mg/dL (0.7-1.2) L 01/31/24 04:38 GFR Calculation Not Reportable 01/31/24 04:38 Glucose 118 mg/dL (65-115) H 01/31/24 04:38 Calculated Osmolality 286 mOsm/kg (285-295) 01/31/24 04:38 Calcium 7.7 mg/dL (8.5-10.5) L 01/31/24 04:38 Vitals Last Vital Signs Temp 98.5 F 01/31/24 11:23 Pulse 70 01/31/24 11:23 Resp 18 01/31/24 11:23 BP 135/75 01/31/24 11:23 Pulse Ox 92 01/31/24 11:23 O2 Del Method Room Air 01/31/24 11:23 O2 Flow Rate 6 01/30/24 11:35 Discharge Plan Discharge Patient Disposition: Home Health Service Condition: Stable Prescriptions: New aspirin 325 mg Tablet,Delayed Release (Dr/Ec) 325 mg PO DAILY Qty: 0 0RF oxycodone 5 mg Tablet 5 - 10 mg PO Q4H PRN (Reason: Moderate Pain) 7 Days Qty: 40 0RF Continued docusate sodium 100 mg capsule 100 mg PO BID 30 Days Qty: 60 2RF No Action milk thistle 175 mg Tablet 175 mg PO QAM Rx Instructions: give with meal/snack alpha lipoic acid 200 mg Tablet 200 mg PO QAM celecoxib 200 mg capsule 200 mg PO DAILY acetaminophen 500 mg tablet 1,000 mg PO Q8H PRN (Reason: Pain) finasteride 5 mg tablet 5 mg PO QAM losartan 50 mg tablet 50 mg PO DAILY Qty: 30 0RF Discharge Orders: Discharge Order (Routine); Ordered 01/31/24 Ordered By: Mirella Alex Referrals: [facility] [Other] Mirella Alex MD [Physician] - 02/10/24 1:15 pm Vee Rosenberg MD [Primary Care Provider] - (We have notified your physician's clinic of the need for a follow-up appointment to be scheduled. If you have not heard from them within the next 2 business days, please call them directly. ) Discharge Diet: Usual diet Discharge Activity: Increase activity as tolerated, Limit activity as instructed, Use walker/crutches as instructed and As per PT/OT instructions Patient Instructions: Celecoxib (By mouth), Total Knee Replacement (DC), Opioid Safety Activity Restrictions/Additional Instructions: Range of motion, strengthening, and gait training per physical therapy. May weight-bear as tolerated. Maintain current dressing until the clear plastic comes off on its own. I will remove the large outer dressings in the hospital. You may shower, but do not soak your leg in standing water. Discharge Attestations Time Spent in Discharge Care*: greater than 30 min Specific Discharge Activities: educating patient, documenting/other paperwork and evaluating patient/reviewing data Quality Metrics Clinical Quality Measures [ No reported AMI, CVA or VTE this stay] Coding Level of Care Code Acute Code for Chg Fwd Diagnoses Status post total left knee replacement not using cement Z96.652 Primary osteoarthritis of left knee M17.12 Osteoarthritis type: primary Varus deformity, not elsewhere classified, left knee M21.162
== END 2024-01-31 17:35 | disposition home health service (06) ==
LOC: MEDSURG 12:00
PROVIDERS: Nurse Practitioner; Admitting Provider Specialist; PCP Family Medicine; Visit Provider Specialist
PROC: 8E0Y0CZ Robotic Assisted Procedure of Lower Extremity, Open Approach (ICD-10-PCS; CPT 27447; principal; 2024-01-30 07:55)
DX: M17.12 Unilateral primary osteoarthritis, left knee (principal); M24.562 Contracture, left knee; M21.162 Varus deformity, not elsewhere classified, left knee; I10 Essential (primary) hypertension; K76.0 Fatty (change of) liver, not elsewhere classified; K21.9 Gastro-esophageal reflux disease without esophagitis; N40.0 Benign prostatic hyperplasia without lower urinary tract symptoms; E11.9 Type 2 diabetes mellitus without complications; Z87.891 Personal history of nicotine dependence
CPT/HCPCS: 20985; 27447; 36415; 51702; 73560; 80048; 85025; 97110; 97116; 97161; 97165; 97530; C1776; C9290; G0378; J0131; J0690; J1100; J2250; J2704; J2795; J3010; J3370; J3490; J7030

== ENCOUNTER 2024-02-03 11:26 | Emergency (ER) | payer MEDICARE, SELFPAY ==
--- NOTE | 2024-02-03 11:30 | ECG_ITS ---
[facility] Test Date: 2024-02-03 Pat Name: Bhanu Mcclendon Department: Room: Gender: Male [employer]ers: : 1945 Requested By: Chaim Kline Order Number: [id number] Carlos MD: Anibal Johnson M.D. Measurements Intervals [place] Rate: 71 P: 22 VT: 159 QRS: 72 QRSD: 89 T: 54 QT: 351 QTc: 384 Interpretive Statements SINUS RHYTHM No previous ECG available for comparison Electronically Signed On 02-03-2024 12:21:10 CDT by Anibal Johnson M.D. [id number] f
--- NOTE | 2024-02-03 11:30 | XR_ITS ---
WS: [id number] Exam: XR chest 1V portable [id number] Date/Time of Exam: 02/03/2024 11:36 AM Reason For Exam: dyspnea/cough Comparison 05/08/2021. The lungs are clear and fully inflated. Normal cardiomediastinal silhouette. No pleural effusions. Sp ondylosis of the thoracic spine. Bony structures are otherwise unremarkable. IMPRESSION: 1. No acute cardiopulmonary finding.
[2024-02-03 11:32] VITALS: BP 109/65; PULSE 97; RESP 16; TEMP 36.4; O2SAT 97
[2024-02-03 11:47] LABS: Basophils % 0.3 %; Eosinophils # 0.1 10^3/uL (0.0-0.8); Eosinophils % 0.7 %; Hematocrit 38.1 % (37-53); Lymphocytes # 2.1 10^3/uL (0.8-4.8); Lymphocytes % 19.8 %; Mean Corpuscular HGB Conc 32.5 g/dL (30-55); Mean Corpuscular Hemoglobin 29.9 pg (27-33); Mean Corpuscular Volume 91.8 fl (82-101); Mean Platelet Volume 11.1 fL (7.4-10.4); Monocytes # 1.5 10^3/uL (0.2-0.9); Monocytes % 14.3 %; Neutrophils # 6.29 10^3/uL (1.8-7.7); Neutrophils % 59.9 %; Nucleated Red Blood Cells % 0 %; Platelet Count 222 10^3/cmm (157-399); Red Blood Count 4.15 10^6/uL (3.85-5.65); Red Cell Distribution Width 14.1 % (12.1-15.1)
--- NOTE | 2024-02-03 11:52 | ED_ITS ---
HPI - General Adult 2 General: Chief complaint: General Medical Stated complaint: Heart Palpl/N Time Seen by Provider: 02/03/24 11:29 Source: patient Mode of arrival: EMS History of Present Illness: 78-year-old male presents to the emergen cy room with complaint plaints of heart palpitations and nausea this morning. Palpitations began around 7 AM and were intermittent nausea resolved on its own but his home health care nurse arrived she called EMS he denies any chest pain or having had any chest pain through the course of this. No fevers sweats or chills he does have some moderate swelling and tenderness on the left knee he had a knee arthroplasty done last week he is postop day #4. No drainage from the wound. Onset (ago): hour(s) Severity: mild Associated symptoms: Reports palpitations and weakness; Deny chest pain, confusion, cough, diaphoresis, decreased appetite, dyspnea, fevers/chills, headache(s), malaise, nausea, rash, seizures, short of breath, syncope or vomiting Review of Systems 2 Const: Denies: fever(s), chills, malaise or diaphoresis Card: Reports: palpitations; Denies: chest pain or syncope Resp: Denies: dyspnea GI: Denies: abdominal pain, nausea or vomiting : Denies: dysuria, urinary frequency or urinary urgency Musc: Denies: neck pain or back pain Skin/Breast: Denies: rash Neuro: Denies: headache(s) or confusion PFSH ED 2 PFSH: Medical History Osteoarthritis of left knee History of kidney stones SOB (shortness of breath) Allergic rhinitis GERD (gastroesophageal reflux disease) Resolved, off PPI, we will restart if needed. Essential hypertension (Unknown) Fatty liver Hepatic cyst BPH (benign prostatic hyperplasia) No longer following with retired urologist. We can refer back in the future if needed Diabetes Surgical History H/O laminectomy H/O circumcision H/O vasectomy H/O arthroscopic knee surgery History of kidney surgery History of prostate surgery S/P tonsillectomy Family History Mother Cancer Denies family history of Diabetes CAD (coronary artery disease) Anesthesia complication Bleeding disorder Social History Smoking and tobacco/nicotine status: former use of tobacco/nicotine Second hand smoke exposure: No Alcohol intake: never Substance/Drug Use: never Lives independently: Yes Household members: spouse Marital status: Current occupational status: retired Do you think of yourself as: Straight/Heterosexual Current gender identity: Male Physical Exam 2 Const: COMMON NORMALS: no acute distress GENERAL APPEARANCE: cooperative and comfortable ORIENTATION/CONSCIOUSNESS: Yes awake, Yes oriented to person, Yes oriented to place and Yes oriented to time HENMT: COMMON NORMALS: normocephalic, atraumatic and hearing grossly normal bilaterally HEAD & SCALP: normocephalic and atraumatic Resp: COMMON NORMALS: normal respiratory effort, No retractions, No use of accessory muscles and clear to auscultation bilaterally AUSCULTATION: clear to auscultation bilaterally Cardio: COMMON NORMALS: regular rate, regular rhythm and No murmurs present (Cardio) RATE: regular rate RHYTHM: regular rhythm GI: COMMON NORMALS: Soft to palpation and No hepatosplenomegaly present A USCULTATION: Yes normoactive bowel sounds PALPATION: Yes Soft to palpation, No Tenderness to palpation present (GI), No Guarding due to palpation present (GI) and Yes No hepatosplenomegaly present Extremity: COMMON NORMALS: normal to inspection, capillary refill normal, no clubbing, cyanosis or edema, no calf tenderness and no pedal edema Neuro: SENSORIUM/ORIENTATION: Yes oriented to person, Yes oriented to place and Yes oriented to time Skin: COMMON NORMALS: no rashes or lesions noted GENERAL SKIN EXAM: no rashes or lesions noted Course 2 Vital Signs: Vital signs: Vital Signs Temperature 97.6 F 02/03/24 11:32 Pulse Rate 97 02/03/24 11:32 Respiratory Rate 16 02/03/24 11:32 Blood Pressure 109/65 02/03/24 11:32 Pulse Oximetry 98 02/03/24 14:17 [facility] - General Adult Medical Decision Making Labs imaging and EKGs reviewed as found in the chart. EKG does not show any acute ST changes. Patient feeling much better after IV fluids. His blood pressure was moderately low while here. No DVT cardiac enzymes and EKG did not show any significant abnormalities no sign of acute coronary syndrome. No sign of infection at the incision site. Discharge patient home change from losartan hydrochlorothiazide to plain losartan Medical Records I reviewed the patient's medical records. Lab Data I reviewed the patient's lab results. 02/03/24 11:36 02/03/24 11:36 Laboratory Results WBC 10.50 10^3/uL (3.29-11.43) 02/03/24 11:36 RBC 4.15 10^6/uL (3.85-5.65) 02/03/24 11:36 Hgb 12.40 g/dL (11.27-16.99) 02/03/24 11:36 Hct 38.1 % (37-53) 02/03/24 11:36 MCV 91.8 fl (82-101) 02/03/24 11:36 MCH 29.9 pg (27-33) 02/03/24 11:36 MCHC 32.5 g/dL (30-55) 02/03/24 11:36 RDW 14.1 % (12.1-15.1) 02/03/24 11:36 Plt Count 222 10^3/cmm (157-399) 02/03/24 11:36 MPV 11.1 fL (7.4-10.4) H 02/03/24 11:36 Neut % (Auto) 59.9 % 02/03/24 11:36 Lymph % (Auto) 19.8 % 02/03/24 11:36 [place] % (Auto) 14.3 % 02/03/24 11:36 Eos % (Auto) 0.7 % 02/03/24 11:36 Baso % (Auto) 0.3 % 02/03/24 11:36 Neut # (Auto) 6.29 10^3/uL (1.8-7.7) 02/03/24 11:36 Lymph # (Auto) 2.1 10^3/uL (0.8-4.8) 02/03/24 11:36 [place] # (Auto) 1.5 10^3/uL (0.2-0.9) H 02/03/24 11:36 Eos # (Auto) 0.1 10^3/uL (0.0-0.8) 02/03/24 11:36 Baso # (Auto) 0.0 10^3/uL (0.0-0.1) 02/03/24 11:36 Nucleated RBC % (auto) 0 % 02/03/24 11:36 Nucleated RBCs # 0.0 /100WBC 02/03/24 11:36 ESR 34 mm/hr (0-10) H 02/03/24 11:36 Sodium 141 mmol/L (136-145) 02/03/24 11:36 Potassium 3.6 mmol/L (3.5-5.1) 02/03/24 11:36 Chloride 106 mmol/L (98-107) 02/03/24 11:36 Carbon Dioxide 22 mmol/L (22-29) 02/03/24 11:36 Anion Gap 16.6 (5-19) 02/03/24 11:36 BUN 19 mg/dL (8-23) 02/03/24 11:36 Creatinine 0.8 mg/dL (0.7-1.2) 02/03/24 11:36 GFR Calculation Not Reportable 02/03/24 11:36 Glucose 123 mg/dL (65-115) H 02/03/24 11:36 Calculated Osmolality 296 mOsm/kg (285-295) H 02/03/24 11:36 Calcium 8.7 mg/dL (8.5-10.5) 02/03/24 11:36 Total Bilirubin 0.8 mg/dL (0.15-1.2) 02/03/24 11:36 AST 38 U/L (0-40) 02/03/24 11:36 ALT 55 U/L (0-41) H 02/03/24 11:36 Alkaline Phosphatase 66 U/L (40-130) 02/03/24 11:36 Troponin T Baseline 24 ng/L (0-15) H 02/03/24 11:36 Troponin T 120 Minute 16.28 ng/L (0-15) H 02/03/24 13:48 Delta Troponin T -7.72 ABS# (0-10) L 02/03/24 13:48 C-Reactive Protein 63.7 mg/L (0.0-4.9) H 02/03/24 11:36 Total Protein 6.2 g/dL (6.6-8.7) L 02/03/24 11:36 Albumin 4.0 g/dL (3.5-5.2) 02/03/24 11:36 Globulin 2.2 g/dL (1.3-4.6) 02/03/24 11:36 Urine Color Yellow (Yellow) 02/03/24 12:04 Urine Appearance Clear (CLEAR) 02/03/24 12:04 Urine pH 5 (5-7) 02/03/24 12:04 Ur Specific [place] 1.025 (1.005-1.030) 02/03/24 12:04 Urine Protein Neg (Negative) 02/03/24 12:04 Urine Glucose (UA) Norm (Normal) 02/03/24 12:04 Urine Ketones Negative (Negative) 02/03/24 12:04 Urine Blood Neg (Negative) 02/03/24 12:04 Urine Nitrate Negative (Negative) 02/03/24 12:04 Urine Bilirubin Neg (Negative) 02/03/24 12:04 Urine Urobilinogen Norm mg/dL (Negative) 02/03/24 12:04 Ur Leukocyte Esterase Negative (Negative) 02/03/24 12:04 All radiology interpretation(s) finalized by discharge Discharge Plan Discharge Patient Disposition: Home Clinical Impression: Palpitation, Hypotension Condition: Stable Prescriptions: New losartan 50 mg tablet 50 mg PO DAILY Qty: 30 0RF Discontinued losartan-hydrochlorothiazide 50-12.5 mg tablet 1 tab PO QAM No Action docusate sodium 100 mg capsule 100 mg PO BID 30 Days Qty: 60 2RF aspirin 325 mg Tablet,Delayed Release (Dr/Ec) 325 mg PO DAILY Qty: 0 0RF oxycodone 5 mg Tablet 5 - 10 mg PO Q4H PRN (Reason: Moderate Pain) 7 Days Qty: 40 0RF milk thistle 175 mg Tablet 175 mg PO QAM Rx Instructions: give with meal/snack alpha lipoic acid 200 mg Tablet 200 mg PO QAM celecoxib 200 mg capsule 200 mg PO DAILY acetaminophen 500 mg tablet 1,000 mg PO Q8H PRN (Reason: Pain) finasteride 5 mg tablet 5 mg PO QAM Discharge Orders: Discharge ED (Routine); Ordered 02/03/24 Ordered By: Chaim Olivera Referrals: Vee Rosenberg MD [Primary Care Provider] - Patient Instructions: Opioid Safety, Pain Management Activity Restrictions/Additional Instructions: Thank you for choosing [facility] for your healthcare needs today. Please realize this is an emergency room and that we are providing you with a medical screening exam and this may not be complete and all inclusive of all the testing and or work up that you may need to determine your ailment or severity of your illness. It is very important that you follow up as instructed or that you return to the Emergency Department should you have concerns or if your condition changes or worsens in any way. You were seen today for low blood pressure and palpitations. Recommend that you change from losartan hydrochlorothiazide to plain losartan. Follow-up with your doctor within the next week. Coding Level of Care Code ED [employer] for [employer]
[2024-02-03 12:00] LABS: Alanine Aminotransferase 55 U/L (0-41); Alkaline Phosphatase 66 U/L (40-130); Anion Gap 16.6 (5-19); Aspartate Amino Transferase 38 U/L (0-40); Blood Urea Nitrogen 19 mg/dL (8-23); Calcium 8.7 mg/dL (8.5-10.5); Carbon Dioxide 22 mmol/L (22-29); Chloride 106 mmol/L (98-107); Creatinine Clr Calc Pharmacy 84.6969; Globulin 2.2 g/dL (1.3-4.6); Glucose 123 mg/dL (65-115); Osmolality Calculated 296 mOsm/kg (285-295); Potassium 3.6 mmol/L (3.5-5.1); Sodium 141 mmol/L (136-145); Total Bilirubin 0.8 mg/dL (0.15-1.2); Total Protein 6.2 g/dL (6.6-8.7)
[2024-02-03 12:05] LABS: Troponin(5th) Baseline 24 ng/L (0-15)
[2024-02-03] MEDS: sodium chloride 0.9% 1,000 ML 999 ML IV (12:08)
[2024-02-03 12:09] LABS: Add Urine Microscopic? NO; Charge for UA Resulting for Rev
--- NOTE | 2024-02-03 12:10 | USCV_ITS ---
Bhanu Mcclendon Age: 78 Gender: M : 1945 Exam Date: 02/03/2024 12:43 Ordering Phys: Chaim Olivera DO Technologist: Exam Location: [facility] Indication: lt leg swelling post knee surg PROCEDURES: Venous duplex imaging was performed in bilateral lower extremities. The following venous structures were evaluated: common femoral vein, profunda vein, proximal portion of the greater saphenous vein, superficial femoral vein, and the popliteal vein. In addition, the posterior tibial and peroneal trunk were evaluated. FINDINGS: Normal 2-D Doppler and augmentation and compressibility throughout the lower extremity venous structures. Additional imaging through the proximal calf veins also reveals no thrombus. Limited evaluation of the greater saphenous vein is patent with no thrombus. CONCLUSIONS No evidence of right lower extremity DVT. No evidence of left lower extremity DVT. Martell Bryan MD (Electronically Signed) Final Date: 03 February 2024 14:43 S
[2024-02-03 12:32] LABS: C Reactive Protein 63.7 mg/L (0.0-4.9)
[2024-02-03 12:35] VITALS: BP 116/74; PULSE 67; O2SAT 99
[2024-02-03 12:47] LABS: Erythrocyte Sedimentation Rate 34 mm/hr (0-10)
[2024-02-03 12:48] LABS: Bilirubin Urine Neg (Negative); Blood Urine Neg (Negative); Glucose Urine UA Norm (Normal); Ketones Urine Negative (Negative); Leukocyte Esterase Urine Negative (Negative); Nitrate Urine Negative (Negative); Protein Urine Neg (Negative); Specific Gravity, Urine 1.025 (1.005-1.030); Urine Appearance Clear (CLEAR); Urine Color Yellow (Yellow); Urobilinogen Urine Norm (Negative); pH Urine 5 (5-7)
[2024-02-03 13:31] VITALS: BP 150/73; PULSE 64; O2SAT 98
--- NOTE | 2024-02-03 13:34 | ECG_ITS ---
[facility] Test Date: 2024-02-03 Pat Name: Bhanu Mcclendon Department: Room: Gender: Male Stage Hand: : 1945 Requested By: Chaim Kline Order Number: [id number] Carlos MD: Anibal Johnson M.D. Measurements Intervals [place] Rate: 63 P: 40 TN: 170 QRS: 71 QRSD: 88 T: 54 QT: 384 QTc: 393 Interpretive Statements SINUS RHYTHM Compared to ECG 02/03/2024 11:31:41 No significant changes Electronically Signed On 02-03-2024 21:54:22 CDT by Anibal Johnson M.D. [id number]
[2024-02-03 14:17] VITALS: O2SAT 98
[2024-02-03] MEDS: morphine 4 mg/mL SDV 1 mL IVP (14:17)
[2024-02-03 14:42] LABS: Troponin 5 2HR 16.28 ng/L (0-15)
[2024-02-03 14:44] LABS: Troponin 5 2HR Delta -7.72 ABS# (0-10)
[2024-02-03] MEDS: sodium chloride 0.9% 500 ML 999 ML IV (14:47)
[2024-02-03 15:00] VITALS: BP 111/53; PULSE 67; O2SAT 96
== END 2024-02-03 16:28 | disposition home or self-care (01) ==
PROVIDERS: Emergency Provider Family Medicine; PCP Family Medicine
DX: R00.2 Palpitations (principal); I95.9 Hypotension, unspecified; Z79.82 Long term (current) use of aspirin; Z87.891 Personal history of nicotine dependence; I10 Essential (primary) hypertension; E11.9 Type 2 diabetes mellitus without complications
CPT/HCPCS: 36415; 71045; 80053; 81003; 84484; 85025; 85651; 86140; 93005; 93970; 96361; 96374; 99285; J2270; J7030; J7040

== ENCOUNTER → 2024-02-10 13:14 | Outpatient (BNVA) | payer MEDICARE, SELFPAY | PROVIDERS: PCP Family Medicine; Visit Provider Nurse Practitioner | DX: Z96.652 Presence of left artificial knee joint (principal); M21.162 Varus deformity, not elsewhere classified, left knee | CPT/HCPCS: 73560; 73565; 99024 ==

== ENCOUNTER → 2024-03-30 14:49 | Outpatient (BNVA) | payer MEDICARE, SELFPAY | PROVIDERS: PCP Family Medicine; Visit Provider Specialist | DX: Z96.652 Presence of left artificial knee joint (principal); M25.562 Pain in left knee | CPT/HCPCS: 73560; 73565; 99024 ==

== ENCOUNTER 2024-04-20 06:00 | Outpatient (RCR) | payer MEDICARE, SELFPAY | END 2024-05-10 23:59 | disposition home or self-care (01) | LOC: MPT 06:00 | PROVIDERS: PCP Family Medicine; Visit Provider Specialist | DX: Z47.1 Aftercare following joint replacement surgery (principal); Z96.652 Presence of left artificial knee joint | CPT/HCPCS: 97110; 97140; 97162; G0283 ==

== ENCOUNTER 2024-05-11 06:00 | Outpatient (RCR) | payer MEDICARE, SELFPAY | END 2024-06-10 23:59 | disposition home or self-care (01) | LOC: MPT 06:00 | PROVIDERS: PCP Family Medicine; Visit Provider Specialist | DX: Z47.1 Aftercare following joint replacement surgery (principal); Z96.652 Presence of left artificial knee joint | CPT/HCPCS: 97110; 97112; 97116; 97140; G0283 ==

== ENCOUNTER → 2024-05-20 15:58 | Outpatient (BNVA) | payer MEDICARE, SELFPAY | PROVIDERS: PCP Family Medicine; Visit Provider Specialist | DX: Z96.652 Presence of left artificial knee joint (principal); M24.562 Contracture, left knee | CPT/HCPCS: 73560; 73565; 99213 ==

== ENCOUNTER → 2024-06-10 13:45 | Outpatient (BNVA) | payer MEDICARE, SELFPAY | PROVIDERS: PCP Family Medicine; Visit Provider Family Medicine | DX: I10 Essential (primary) hypertension (principal); E11.9 Type 2 diabetes mellitus without complications | CPT/HCPCS: 80061; 83036 ==

== ENCOUNTER 2024-06-11 06:00 | Outpatient (RCR) | payer MEDICARE, SELFPAY | END 2024-07-11 23:59 | disposition home or self-care (01) | LOC: MPT 06:00 | PROVIDERS: PCP Family Medicine; Visit Provider Specialist | DX: Z47.1 Aftercare following joint replacement surgery (principal); Z96.652 Presence of left artificial knee joint | CPT/HCPCS: 97110; 97112; 97140; G0283 ==

== ENCOUNTER → 2024-06-23 09:46 | Outpatient (BNVA) | payer MEDICARE, SELFPAY | PROVIDERS: PCP Family Medicine; Visit Provider Podiatrist Foot & Ankle Surgery | DX: L60.3 Nail dystrophy (principal); G62.89 Other specified polyneuropathies; E11.49 Type 2 diabetes mellitus with other diabetic neurological complication | CPT/HCPCS: 11721; 99203 ==

== ENCOUNTER → 2024-07-08 12:53 | Outpatient (BNVA) | payer MEDICARE, SELFPAY | PROVIDERS: PCP Family Medicine; Visit Provider Specialist | DX: Z96.652 Presence of left artificial knee joint (principal) | CPT/HCPCS: 73560; 73565; 99213 ==

== ENCOUNTER 2024-07-12 06:00 | Outpatient (RCR) | payer MEDICARE, SELFPAY | END 2024-08-10 23:59 | disposition home or self-care (01) | LOC: MPT 06:00 | PROVIDERS: PCP Family Medicine; Visit Provider Specialist | DX: Z47.1 Aftercare following joint replacement surgery (principal); Z96.652 Presence of left artificial knee joint | CPT/HCPCS: 97110; 97140; 97530; G0283 ==

== ENCOUNTER 2024-08-11 06:00 | Outpatient (RCR) | payer MEDICARE, SELFPAY | END 2024-09-09 23:59 | disposition home or self-care (01) | LOC: MPT 06:00 | PROVIDERS: PCP Family Medicine; Visit Provider Specialist | DX: Z47.1 Aftercare following joint replacement surgery (principal); Z96.652 Presence of left artificial knee joint | CPT/HCPCS: 97110; 97530; G0283 ==

== ENCOUNTER 2024-09-08 11:13 | Outpatient (CLI) | payer MEDICARE, SELFPAY ==
--- NOTE | 2024-09-08 12:45 | US_ITS ---
WS: [id number] Complete ABDOMINAL ULTRASOUND HISTORY: R10.11 - Right upper quadrant pain COMPARISON: 06/27/2022 Liver: 14.3 cm in length. Normal size liver and echogenicity. Reidentified is a subcapsular cyst robert uring 1.2 x 1.2 cm at the gallbladder fossa. No bile duct dilatation or mass. Portal Vein: Normal hepatopetal flow with monophasic waveform. Gallbladder: Normally distended gallbladder with no stones or wall thickening. CBD: 0.3 cm Pancreas: Tail is not visualized. Remaining pancreas is negative. Right kidney: 12.2 cm x 5.9 x 6.0 cm. Cortex:1.1 cm. Minimal distention of the renal pelvis. No solid mass. Left kidney: 11.1 cm x 5.3 cm x 4.5 cm. Cortex: 1.4 cm. Normal size and echogenicity. No hydronephrosis or mass. Spleen: 10.2 cm. Poorly visualized. Aorta and IVC: Unremarkable abdominal aorta and IVC. US/US abdomen complete* [id number] Impression: 1. Negative gallbladder. 2. Very minimal fluid distention of the RIGHT renal pelvis. No calyceal dilata tion. May not be a significant amount of fluid in the pelvis. 3. Long-term stability hepatic cyst.
== END 2024-09-08 11:14 | disposition home or self-care (01) ==
LOC: RAD 11:14
PROVIDERS: PCP Family Medicine; Visit Provider Family Medicine
DX: R10.11 Right upper quadrant pain (principal); Q44.6 Cystic disease of liver; K76.0 Fatty (change of) liver, not elsewhere classified
CPT/HCPCS: 76700

== ENCOUNTER → 2024-09-15 10:38 | Outpatient (BNVA) | payer MEDICARE, SELFPAY | PROVIDERS: PCP Family Medicine; Visit Provider Podiatrist Foot & Ankle Surgery | DX: L60.3 Nail dystrophy (principal); G62.89 Other specified polyneuropathies; E11.49 Type 2 diabetes mellitus with other diabetic neurological complication | CPT/HCPCS: 11721 ==

== ENCOUNTER → 2024-12-03 10:38 | Outpatient (BNVA) | payer MEDICARE, SELFPAY | PROVIDERS: PCP Family Medicine; Visit Provider Podiatrist Foot & Ankle Surgery | DX: L60.3 Nail dystrophy (principal); G62.89 Other specified polyneuropathies; E11.69 Type 2 diabetes mellitus with other specified complication | CPT/HCPCS: 11721 ==

== ENCOUNTER → 2024-12-15 14:17 | Outpatient (BNVA) | payer MEDICARE, SELFPAY | PROVIDERS: PCP Family Medicine; Visit Provider Family Medicine | DX: M25.50 Pain in unspecified joint (principal); E11.9 Type 2 diabetes mellitus without complications; I10 Essential (primary) hypertension; N40.1 Benign prostatic hyperplasia with lower urinary tract symptoms; R39.11 Hesitancy of micturition; G62.89 Other specified polyneuropathies; M79.89 Other specified soft tissue disorders; K29.70 Gastritis, unspecified, without bleeding; K76.0 Fatty (change of) liver, not elsewhere classified; R10.11 Right upper quadrant pain; M25.541 Pain in joints of right hand; M25.542 Pain in joints of left hand | CPT/HCPCS: 80053; 85025; 85651; 86038 ==

== ENCOUNTER → 2025-02-04 10:44 | Outpatient (BNVA) | payer MEDICARE, SELFPAY | PROVIDERS: PCP Family Medicine; Visit Provider Podiatrist Foot & Ankle Surgery | DX: E11.49 Type 2 diabetes mellitus with other diabetic neurological complication (principal); L60.3 Nail dystrophy; G62.89 Other specified polyneuropathies | CPT/HCPCS: 11721 ==

== ENCOUNTER → 2025-02-22 13:20 | Outpatient (BNVA) | payer MEDICARE, SELFPAY | PROVIDERS: PCP Family Medicine; Visit Provider Specialist | DX: Z96.652 Presence of left artificial knee joint (principal); M24.562 Contracture, left knee | CPT/HCPCS: 73560; 73565; 99213 ==

== ENCOUNTER → 2025-04-21 12:47 | Outpatient (BNVA) | payer MEDICARE, SELFPAY | PROVIDERS: PCP Family Medicine; Visit Provider Podiatrist Foot & Ankle Surgery | DX: E11.49 Type 2 diabetes mellitus with other diabetic neurological complication (principal); L60.3 Nail dystrophy; G62.89 Other specified polyneuropathies | CPT/HCPCS: 11721 ==

== ENCOUNTER → 2025-06-15 14:13 | Outpatient (BNVA) | payer MEDICARE, SELFPAY | PROVIDERS: PCP Family Medicine; Visit Provider Family Medicine | DX: I10 Essential (primary) hypertension (principal); E11.9 Type 2 diabetes mellitus without complications; E87.6 Hypokalemia | CPT/HCPCS: 80048; 80061; 83036 ==

== ENCOUNTER → 2025-06-23 11:09 | Outpatient (BNVA) | payer MEDICARE, SELFPAY | PROVIDERS: PCP Family Medicine; Visit Provider Podiatrist Foot & Ankle Surgery | DX: E11.69 Type 2 diabetes mellitus with other specified complication (principal); L60.3 Nail dystrophy; G62.89 Other specified polyneuropathies | CPT/HCPCS: 11721 ==

== ENCOUNTER → 2025-09-08 11:13 | Outpatient (BNVA) | payer MEDICARE, SELFPAY | PROVIDERS: PCP Family Medicine; Visit Provider Podiatrist Foot & Ankle Surgery | DX: E11.8 Type 2 diabetes mellitus with unspecified complications (principal); L60.3 Nail dystrophy; G62.89 Other specified polyneuropathies; E11.49 Type 2 diabetes mellitus with other diabetic neurological complication | CPT/HCPCS: 11721 ==